=== PATIENT | male | born 1940 | race Caucasian/White ===

== ENCOUNTER 2024-06-25 23:38 | Inpatient (IN) | payer MEDICARE, BC, SELFPAY ==
[2024-06-25 20:30] VITALS: BP 150/87; BMI 30.6
[2024-06-25 20:44] LABS: % Basophils 0.3 % (0-2); % Eosinophils 0.3 % (0-6); % Immature Granulocytes 0.6 % (0-0.5); % Lymphocytes 9.3 % (20.5-51.1); % Monocytes 10.5 % (1.7-9.3); Absolute Basophils 0.1 10^3/uL (0-0.2); Absolute Eosinophils 0.1 10^3/uL (0-0.7); Absolute Immature Granulocytes 0.1 10^3/uL (0-0.05); Absolute Lymphocytes 1.9 10^3/uL (1.2-3.4); Absolute Monocytes 2.2 10^3/uL (0.1-0.6); Absolute Neutrophils 16.3 10^3/uL (1.4-6.5); Mean Corp Hgb Conc. 34.3 g/dL (33.0-37.0); Mean Corpuscular Hgb 28.6 pg (27.0-31.0); Mean Corpuscular Volume 83.3 fL (80.0-94.0); Mean Platelet Volume 9.5 fL (7.4-10.4); Nucleated Red Blood Cells % 0 % (-); Platelet Count 255 10^3/uL (130-400); White Blood Cell Count 20.6 10^3/uL (4.8-10.8)
[2024-06-25 21:03] LABS: ALT (SGPT) 14 U/L (0-50); AST (SGOT) 24 U/L (17-59); Albumin 4.1 g/dl (3.5-5.0); Alkaline Phosphatase 80 U/L (38-126); Blood Urea Nitrogen 27 mg/dl (9-20); Calcium 9.3 mg/dl (8.4-10.2); Carbon Dioxide 17 mmol/L (22-30); Chloride 102 mmol/L (98-107); Estimated Creatinine Clearance 67 ml/min; Glucose 136 mg/dl (70-99); Potassium 4.2 mmol/L (3.5-5.1); Sodium 137 mmol/L (135-145); Total Bilirubin 1.5 mg/dl (0.2-1.3); Total Protein 7.9 g/dl (6.3-8.2); eGFR > 60.00
[2024-06-25 21:43] LABS: Urine Albumin Trace (Neg - Trace); Urine Bilirubin Negative (Negative); Urine Character Slightly Cloudy (Clear); Urine Color Yellow; Urine Glucose Negative (Negative); Urine Ketone Negative (Negative); Urine Leukocyte 2+ (Negative); Urine Nitrite Positive (Negative); Urine Occult Blood 1+ (Negative); Urine Specific Gravity 1.015 (<1.030); Urine Urobilinogen Negative (Neg - 1+)
[2024-06-25 21:52] LABS: Urine Bacteria Many (Negative); Urine White Cell >100 /HPF (0-5)
--- NOTE | 2024-06-25 22:26 | ED.GENMED ---
History of Present Illness
General
Chief Complaint: Fever
Source: patient, records, spouse and family
Exam Limitations: none
Time Seen by Provider: 06/25/24 20:55
Nursing documentation reviewed up to this point in time: agreed with
History of Present Illness
History of Present Illness:
Patient is an 84-year-old male who presents to the emergency department secondary to a fever that began around 5 PM although the patient had felt warm earlier, fatigue, flushing as well as a temperature of 102.5 with 90% pulse ox. Patient started
with nasal congestion and a cough approximately 1 to 2 weeks ago. Patient denies any shortness of breath. Patient did complain of a sore throat that is resolved. Patient denies any GI symptoms. Patient does self cath. Patient denies shortness
of breath.
Past History
Past History
ED Past Medical History: CAD, Cancer (skin), HTN, Hypercholesterolemia, NIDDM and Other (Monoclonal gammopathy, Waldenstr�m's macroglobulinemia, BPH, anemia, osteoporosis, glaucoma)
ED Past Surgical History: Tonsilectomy and Other (Agree with documented past surgical history)
Social History
Tobacco: Former smoker
Alcohol: None
Drug: None
Personal:
Living: with family
Family History
Family History: Other
Review of Systems
Review of Systems
All Other Systems: ROS reviewed and negative except as documented in HPI and ROS
Constitutional: Reports fever, fatigue and chills
EENT: Reports runny nose
Respiratory: Reports cough; Denies trouble breathing
Cardiac: Reports no symptoms
ABD/GI: Reports no symptoms
: Reports difficulty voiding (Chronically self caths)
Musculoskeletal: Reports no symptoms
Skin: Reports no symptoms
Neurological: Reports no symptoms
Hematologic/Lymphatic: Reports no symptoms
Psychiatric: Reports no symptoms
Phy Exam
Physical Exam
Physical Exam:
Physical Exam
General: mild distress, alert and appropriate, well nourished, well hydrated
HENT: Normocephalic, supple with no lymphadenopathy, no thyromegaly
Eyes: Clear sclera, conjuctiva without injection
Heart: Regular rhythm and rate. No S3, S4. Grade 2/6 holosystolic murmur. No NVD
Lungs: No respiratory distress, no stridor, lung sounds clear and equal bilaterally, chest wall symmetrical and nontender
Abdomen: Soft, nontender, no organomegaly, no CVA tenderness, BS good
Neuro: Alert and oriented x 3, CN II - XII intact, no motor focality
Skin: no rash. Feels warm
Psychiatric: well kept. interactive and cooperative
Extremities: No edema, cyanosis, tenderness
Course
Orders/Labs/Results
Orders:
Orders
06/25/24 20:32
Electrocardiogram (*1) Urgent
Reason for Study: Other
Other Reason for Exam: Possible Sepsis
EKG- Treatment ONCE
IV Insert/Care/Rem.- Treatment PRN
Straight cath- Treatment ONCE
O2 Therapy [RESP] Urgent
Titrate/Wean O2 to maintain O2 sat greater than (%): 93
Special Instructions: TO MAINTAIN CONTINUOUS O2 SATS > OR = 93%
06/25/24 20:33
Complete Blood Count/With Diff Urgent
Comprehensive Metabolic Panel Urgent
Lactic Acid Q4H
Comment: ON ICE, CANCEL 2ND ORDER IF FIRST LACTIC ACID LEVEL <2
Urinalysis Reflex To Culture Urgent
Date Specimen was Collected: 06/25/24
Time Specimen was Collected: 20:32
Urine Microscopic Reflex Cult Urgent
Urine Culture Urgent
JORY Source: U
Specimen Description:
Date Specimen was Collected: 06/25/24
Time Specimen was Collected: 20:32
06/25/24 21:20
0.9% Sodium Chloride 1000 ml [Nss] 1,000 ml IV BOLUS
06/25/24 21:59
COVID-19 Antigen Urgent
Source: Nasal Swab
06/25/24 22:25
Cefepime HCl [Maxipime] 2,000 mg IV NOW STA
06/26/24 00:45
Lactic Acid Q4H
Comment: ON ICE, CANCEL 2ND ORDER IF FIRST LACTIC ACID LEVEL <2
Abnormal Lab Results
06/25/24
20:33
WBC 20.6 H 10^3/uL
(4.8-10.8)
RBC 4.20 L 10^6/uL
(4.70-6.10)
Hgb 12.0 L g/dL
(13.0-18.0)
Hct 35.0 L %
(39.0-52.0)
Abs Immat Gran (auto) 0.1 H 10^3/uL
(0-0.05)
Absolute Neuts (auto) 16.3 H 10^3/uL
(1.4-6.5)
Absolute Monos (auto) 2.2 H 10^3/uL
(0.1-0.6)
Immature Gran % 0.6 H %
(0-0.5)
Neutrophils % 79.0 H %
(42.2-75.2)
Lymphocytes % 9.3 L %
(20.5-51.1)
Monocytes % 10.5 H %
(1.7-9.3)
Carbon Dioxide 17 L mmol/L
(22-30)
BUN 27 H mg/dl
(9-20)
Glucose 136 H mg/dl
(70-99)
Total Bilirubin 1.5 H mg/dl
(0.2-1.3)
Ur Occult Blood Reflex 1+ A
(Negative)
Urine Nitrite (Reflex) Positive A
(Negative)
Leukocyte Esterase Rfl 2+ A
(Negative)
Urine WBC (Reflex) >100 A /HPF
(0-5)
Urine Bacteria (Reflex) Many A
(Negative)
06/25/24 20:33
06/25/24 20:33
Vital Signs
Initial and Last Documented VS:
Initial Vital Signs
Temp Pulse Resp BP Pulse Ox
99.9 F 110 20 150/87 91
06/25/24 20:30 06/25/24 20:30 06/25/24 20:30 06/25/24 20:30 06/25/24 20:30
Last Documented Vital Signs
Temp Pulse Resp BP Pulse Ox
99.9 F 100 25 150/87 93
06/25/24 20:30 06/25/24 22:02 06/25/24 22:02 06/25/24 20:30 06/25/24 22:02
*Radiology
Radiology exam reviewed: other (na)
*Pulse Oximetry
Patient hypoxic: no
*EKG
Interpreted by ED Provider?: Yes
EKG Intrepretation Date: 06/25/24
EKG Intrepretation Time: 22:31
Interpretation: abnormal
Comparison EKG: no changes
Heart Rate: 102
Rate: tachycardiac
Rhythm: sinus
Derry: left axis deviation
Interval: normal interval
QRS Pattern: poor R-wave progression
Ischemia: non-specific ST changes
*[employer] Supervisor Interpretation
Rate: tachycardiac
Interpretation: normal
Heart Rate: 102
Rhythm: sinus
*Critical Care Note
Total Time (30-74mins, 75-104mins- exclusive of procedures): Not Applicable
ED Attending Note
-
Portions of this chart may have been created with voice recognition software.� Occasional wrong word or��sound alike� substitutions may have occurred due to the inherent limitations of voice recognition software.
Discharge Plan
Departure
Patient Disposition: Home (Routine Discharge)
Date of Disposition: 06/25/24
Time of Disposition: 22:31
Patient with high blood pressure during this ER visit?: Yes
Condition: Serious
Covid-19: Not Applicable
Discharge Problem:
Acute UTI, Fever, Leukocytosis
Prescriptions:
No Action
losartan [Cozaar] 50 MG tablet
50 mg PO DAILY
pioglitazone 30 MG tablet
30 mg PO DAILY
doxycycline hyclate 100 MG capsule
100 mg PO Q3D
Patient Comments:
takes for rosacea
dorzolamide-timolol (PF) [Cosopt (PF)] 1 EACH dropperette
1 ea BOTH EYES BID
atorvastatin 20 mg Tablet
20 mg PO QPM
metformin 1,000 mg Tablet
1,000 mg PO BID
ferrous sulfate 325 mg (65 mg iron) Tablet,Delayed Release (Dr/Ec)
325 mg PO DAILY
Lumigan 0.01 % Drops
1 drp BOTH EYES QPM
mupirocin 2 % ointment
1 applic topical BID Qty: 1 0RF
aspirin 325 mg tablet
325 mg PO DAILY Qty: 1 0RF
Rx Instructions:
Take with food
docusate sodium [Colace] 100 mg capsule
100 mg PO BID Qty: 1 0RF
celecoxib 200 mg capsule
200 mg PO DAILY Qty: 14 0RF
Rx Instructions:
*take with food
*space out 2 hours from aspirin
sennosides [Senokot] 8.6 mg tablet
17.2 mg PO BID Qty: 2 0RF
tramadol 50 mg tablet
50 - 100 mg PO Q6H PRN (Reason: 1 tab moderate, 2 tabs if pain severe) Qty: 30 0RF
Rx Instructions:
Dx Orthopedic surgery
Ongoing therapy
post-op
famotidine 20 mg tablet
20 mg PO HS Qty: 30 0RF
Rx Instructions:
post-op
gabapentin 300 mg capsule
300 mg PO HS Qty: 10 0RF
acetaminophen 500 mg Tablet
500 - 1,000 mg PO QID Qty: 0 0RF
Referrals:
Clifford Lutz MD [Family Provider] -
Interventions
Interventions:
*Risk Screen - Suicide Last Done: 06/25/24 20:30
*General Assessment Last Done: 06/25/24 20:30
*Neglect/Abuse Screening Last Done: 06/25/24 20:30
ED- Fall Risk Assessment Last Done: 06/25/24 20:30
*ED COVID-19 Vaccine History Last Done: 06/25/24 20:30
ED- Neurological Assessment Last Done: 06/25/24 20:30
ED-Skin Assessment Last Done: 06/25/24 20:30
Discharge Date and Time
Print Language: MAURITIAN
[2024-06-25 22:29] LABS: COVID-19 Antigen Negative (Negative)
[2024-06-25] MEDS: MAXIPIME 2000 MG IV (22:39)
[2024-06-25] MEDS: NSS 1000 IV (22:39)
--- NOTE | 2024-06-25 22:53 | HPS.HSE ---
Family Physician
-
Family Physician: Clifford Lutz
Chief Complaint
-
fever
History of Present Illness
Mr. Chris Glaser is a 84 yo man with hx BPH (self catheterizes), CAD, HTN, HLD, NIDDM, Waldenstrom's macroglobulinemia, presents to the ER with fever and fatigue.
Patient states he has had fevers over past 2 days. Measured up to 102.5. ER note reports patient had congestion and cough 1-2 weeks ago, patient denies this to me. Poor historian. Denies chest pain. No nausea/vomiting/diarrhea. No abdominal
pain.
He currently denies pain.
Medical History
Past Medical History
Past Medical History: Reports Other (BPH (self catheterizes), CAD, HTN, HLD, NIDDM, Waldenstrom's macroglobulinemia)
Past Surgical History: Reports Tonsilectomy
Social History
Tobacco: Former Smoker
Alcohol: None
Family History
Family History: Not pertinent
Allergies / Home Medications
Allergies reflects when Allergies were last updated in [facility].
Home Medications with original date entered in [facility]
Allergy/Medication List:
Allergies
Allergy/AdvReac Type Severity Reaction Status Date / Time
oxycodone Allergy CONFUSION Verified 06/06/23 11:53
Home Medications
losartan 50 mg tablet (Cozaar) 50 mg PO DAILY Blood pressure 02/25/09
pioglitazone 30 mg tablet 30 mg PO DAILY Diabetes 12/01/19
dorzolamide-timolol (PF) 2 %-0.5 % eye drops in a dropperette (Cosopt (PF)) 1 ea BOTH EYES BID Eye condition 06/25/20
atorvastatin 20 mg tablet 20 mg PO QPM High cholesterol 08/27/22
bimatoprost 0.01 % eye drops (Lumigan) 1 drp BOTH EYES QPM Eye Condition 06/06/23
metformin 1,000 mg tablet 1,000 mg PO BID Diabetes 06/06/23
tamsulosin 0.4 mg capsule 0.4 mg PO DAILY 06/25/24
Review of Systems
-
History Source: Patient
A 12 point ROS was completed and negative except as noted: Yes
Physical Exam
Vital Signs
Vital Signs
Temp Pulse Resp BP Pulse Ox
99.9 F 100 25 150/87 93
06/25/24 20:30 06/25/24 22:02 06/25/24 22:02 06/25/24 20:30 06/25/24 22:02
Physical Exam
General: No Apparent Distress
HEENT: PERRLA
Respiratory: Clear; No Wheezes
Cardiac: S1/S2 and Regular Rhythm
GI: Soft and Non Tender
Musculoskeletal: No Edema
Skin: Warm and Dry; No Rash
Neuro: AO x 3
Psych: Calm
Laboratory Results
-
06/25/24 20:33
06/25/24 20:33
Laboratory Results
Lactic Acid 1.0 mmol/L (0.7-2.0) 06/25/24 20:33
Total Bilirubin 1.5 mg/dl (0.2-1.3) H 06/25/24 20:33
AST 24 U/L (17-59) 06/25/24 20:33
ALT 14 U/L (0-50) 06/25/24 20:33
Alkaline Phosphatase 80 U/L (38-126) 06/25/24 20:33
Data Reviewed
-
Diagnostic Radiology: Report Reviewed by me
Lab Data: Labs Reviewed by me
Impression/Plan
-
Mr. Chris Glaser is a 84 yo man with hx BPH (self catheterizes), CAD, HTN, HLD, NIDDM, Waldenstrom's macroglobulinemia, presents to the ER with fever and fatigue.
Triage VS: T 99.9, P 110, RR 20, BP 150/87, SpO2 91%
LABS: WBC 20.6, Hg 12, PLT 255, Na 137, K+ 4.2, CO2 17, Cr 1.0, Glucose 136, T. Bili 1.5, AST 24, ALT 14, Alk Phos 80
UA with WBC > 100
Covid negative
MAR: Cefepime, fluids
Sepsis 2/2 UTI
-will also obtain CXR given hypoxia and report of congestion
-s/p Cefepime in ER and 1L IVF
-lactate 1
-admit to telemetry
-IV Ceftriaxone
-IVF
-obtain blood culture (although Cefepime given first)
-F/U urine cultures
Patient placed on oxygen for SpO2 90%
-will obtain CXR
-incentive spirometer
NIDDM
-hold DOOR TO DOOR SALES REPRESENTATIVE Metformin and Actos for now
-ISS
-Diabetic Diet
Essential HTN
-DOOR TO DOOR SALES REPRESENTATIVE Losartan with hold parameters
HLD
-DOOR TO DOOR SALES REPRESENTATIVE Statin
Metabolic Acidosis, AG = 18
-lactate 1, glucose only 136
-related to metformin? - will hold
-monitor BMP
DVT PPx lovenox subQ
FULL CODE
--- NOTE | 2024-06-25 23:00 | TRANSFER ---
Pt received from ED to room 423. Pt assisted to stand and pivot to bed. AAOx3, VSS. Bed alarm for safety. Pt oriented to the room, call rogers within reach.
[2024-06-25 23:28] VITALS: BP 147/74
[2024-06-26] VITALS (7 sets, daily range): BP systolic 121–167; BP diastolic 66–96; PULSE 86; O2SAT 99; BMI 29.6
[2024-06-26] MEDS: NSS 1000 IV (01:04)
[2024-06-26 07:41] LABS: Hematocrit 34.1 % (39.0-52.0); Hemoglobin 11.3 g/dL (13.0-18.0); Mean Corp Hgb Conc. 33.1 g/dL (33.0-37.0); Mean Corpuscular Volume 87.7 fL (80.0-94.0); Mean Platelet Volume 9.8 fL (7.4-10.4); Platelet Count 224 10^3/uL (130-400); Red Blood Cell Count 3.89 10^6/uL (4.70-6.10); Red Cell Dist. Width 14.2 % (11.5-14.5); White Blood Cell Count 16.5 10^3/uL (4.8-10.8)
[2024-06-26 08:16] LABS: Blood Urea Nitrogen 22 mg/dl (9-20); Carbon Dioxide 20 mmol/L (22-30); Chloride 102 mmol/L (98-107); Estimated Creatinine Clearance 54 ml/min; Glucose 118 mg/dl (70-99); Magnesium 1.5 mg/dl (1.6-2.3); Potassium 3.7 mmol/L (3.5-5.1); Sodium 137 mmol/L (135-145); eGFR > 60.00
[2024-06-26 08:36] LABS: Glucose - Point of Care 125 mg/dl (70-99)
[2024-06-26] MEDS: STERILE WATER FOR INJECTION 10 ML IV (08:50)
[2024-06-26] MEDS: NOVOLOG FLEXPEN-LOW RESISTANCE SC ×2 (08:50→13:29)
[2024-06-26] MEDS: FLOMAX 0.4 MG PO (09:00)
[2024-06-26] MEDS: COZAAR 50 MG PO (09:00)
[2024-06-26] MEDS: ROCEPHIN 1000 MG IV (09:03)
[2024-06-26 09:34] LABS: Glycohemoglobin (HgbA1c) 6.4 % (4.0-5.6)
[2024-06-26 11:36] LABS: Glucose - Point of Care 126 mg/dl (70-99)
--- NOTE | 2024-06-26 14:57 | W.PN.HOSP.TC ---
Today's Communication/Plan
-
Continue antibiotics pending blood and urine cultures
Continue self-catheterization.
Physical therapy assessment
Assessment / Plan
Assessment / Plan
Impression:
Complicated urinary tract infection associated with catheter/self-catheterization
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
Toxic metabolic encephalopathy secondary to UTI.
Sepsis ruled out.
Transient hypoxia
Metabolic acidosis
Other conditions:
NIDDM.
Essential hypertension
Dyslipidemia
Plan:
Complicated UTI in the patient with chronic bladder outlet obstruction requiring self-catheterization.
Sepsis ruled out.
Urine and blood cultures pending.
TME with reported confusion upon admission currently improved with mental status back to baseline.
Initiated on antibiotics initial dose of cefepime in the ED transition to ceftriaxone.
Continue self-catheterization.
Continue Flomax
Metabolic acidosis
Hemodynamically stable.
Lactate level 1 upon admission.
Improving with IV fluid bolus.
Hold metformin acutely
Reported episode of hypoxia improved per
Chest x-ray with no infiltrate.
Continue incentive spirometry.
NIDDM.
Hemoglobin A1c 6.4.
Preadmission regimen pioglitazone
Continue basal bolus protocol with serial Accu-Cheks
Essential hypertension
Continue losartan with holding parameters.
Dyslipidemia continue statin
Anticipated Discharge: 24 - 48 hours
Subjective/Interval History
-
Date of Service: June 26, 2024
Objective Data
-
Labs:
Laboratory Results
06/26/24
07:00
WBC 16.5 H
Hgb 11.3 L
Hct 34.1 L
Plt Count 224
Sodium 137
Potassium 3.7
Chloride 102
Carbon Dioxide 20 L
BUN 22 H
Creatinine 1.1
Glucose 118 H
Calcium 9.0
Vital Signs:
Vital Signs
Temp Pulse Resp BP Pulse Ox
98.1 F 94 18 137/79 93
06/26/24 11:47 06/26/24 11:47 06/26/24 11:47 06/26/24 11:47 06/26/24 11:47
I&O
06/25/24 06/26/24 06/27/24
06:59 06:59 06:59
Intake Total 240 / 240
Output Total 1650 / 1650
Balance -1410 / -1410
Physical Exam
-
General: No Apparent Distress
HEENT: Normocephalic and Atraumatic
Respiratory: Clear to Auscultation; Negative Wheezes
Cardiac: Regular Rhythm and S1/S2
Breast: Deferred by me
GI: Soft, Nontender and Nondistended
Rectal: Deferred by Provider
Genito-urinary: Deferred by me
Musculoskeletal: No Clubbing, No Cyanosis and No Edema
Skin: Warm and Other (clean and dry dressing over L hip )
Neuro: Awake, Alert, Oriented, AO x 3 and Nonfocal/Grossly Intact
Psych: Calm
--- NOTE | 2024-06-26 15:03 | CM ---
Patient seen bedside, initial assessment completed. Patient resides with his in a single story home, one step to enter. Patient reports he has a walker and multiple canes at home, currently on O2, is not on home O2. Patient reports he is
current with [facility], denies SNF history. Patient confirms PCP Dr. Lutz, pharmacy [facility], confirms prescription coverage. CM will continue to follow for all discharge planning needs.
Plan; home with return of care [facility], watch for PT recommendations.
[2024-06-26] MEDS: XALATAN OPHTHALMIC SOLUTION 1 DROP BOTH EYES (18:53)
[2024-06-26 18:57] LABS: Glucose - Point of Care 198 mg/dl (70-99)
[2024-06-26] MEDS: LOVENOX 40 MG SC (18:57)
[2024-06-26] MEDS: LIPITOR 20 MG PO (18:57)
[2024-06-26] MEDS: NOVOLOG FLEXPEN-LOW RESISTANCE 1 UNITS SC (19:19)
[2024-06-26] MEDS: COSOPT EYE DROPS 1 DROP BOTH EYES (20:07)
[2024-06-26 21:37] LABS: Glucose - Point of Care 149 mg/dl (70-99)
[2024-06-27 04:00] VITALS: BP 131/73
[2024-06-27 06:05] LABS: % Basophils 0.4 % (0-2); % Eosinophils 2.5 % (0-6); % Immature Granulocytes 0.6 % (0-0.5); % Lymphocytes 12.8 % (20.5-51.1); % Monocytes 15.4 % (1.7-9.3); % Neutrophils 68.3 % (42.2-75.2); Absolute Basophils 0.1 10^3/uL (0-0.2); Absolute Eosinophils 0.3 10^3/uL (0-0.7); Absolute Immature Granulocytes 0.1 10^3/uL (0-0.05); Absolute Lymphocytes 1.5 10^3/uL (1.2-3.4); Absolute Monocytes 1.8 10^3/uL (0.1-0.6); Absolute Neutrophils 7.8 10^3/uL (1.4-6.5); Hematocrit 34.5 % (39.0-52.0); Hemoglobin 11.6 g/dL (13.0-18.0); Mean Corp Hgb Conc. 33.6 g/dL (33.0-37.0); Mean Corpuscular Hgb 29.1 pg (27.0-31.0); Mean Corpuscular Volume 86.5 fL (80.0-94.0); Mean Platelet Volume 9.8 fL (7.4-10.4); Nucleated Red Blood Cells % 0 % (-); Platelet Count 222 10^3/uL (130-400); Red Blood Cell Count 3.99 10^6/uL (4.70-6.10); Red Cell Dist. Width 13.8 % (11.5-14.5); White Blood Cell Count 11.4 10^3/uL (4.8-10.8)
[2024-06-27 06:28] LABS: Blood Urea Nitrogen 23 mg/dl (9-20); Calcium 9.3 mg/dl (8.4-10.2); Carbon Dioxide 23 mmol/L (22-30); Chloride 103 mmol/L (98-107); Estimated Creatinine Clearance 54 ml/min; Glucose 128 mg/dl (70-99); Potassium 4.1 mmol/L (3.5-5.1); Sodium 139 mmol/L (135-145); eGFR > 60.00
[2024-06-27 07:00] VITALS: BP 138/74
[2024-06-27 07:34] LABS: Glucose - Point of Care 138 mg/dl (70-99)
[2024-06-27] MEDS: NOVOLOG FLEXPEN-LOW RESISTANCE SC ×2 (08:13→17:01)
[2024-06-27] MEDS: ROCEPHIN 1000 MG IV (08:14)
[2024-06-27] MEDS: STERILE WATER FOR INJECTION 10 ML IV (08:14)
[2024-06-27] MEDS: ACTOS 30 MG PO (08:14)
[2024-06-27] MEDS: COZAAR 50 MG PO (08:14)
[2024-06-27] MEDS: FLOMAX 0.4 MG PO (08:14)
[2024-06-27] MEDS: COSOPT EYE DROPS 1 DROP BOTH EYES ×2 (08:15→20:12)
--- NOTE | 2024-06-27 09:26 | W.PN.HOSP.TC ---
Addendum entered and electronically signed by Fish Downs MD 06/27/24 09:43:
Physical Exam
-
General: Well Developed and No Apparent Distress. sitting in chair
HEENT: Normocephalic, Atraumatic and Moist Mucous Membranes
Respiratory: No wheezes
Cardiac: Regular Rhythm and S1/S2;
GI: Soft, Nontender, Nondistended and Normal Bowel Sounds;
Musculoskeletal: No Clubbing, No Cyanosis
Skin: Negative Rash
Neuro: Awake, Alert, Oriented, AO x to self and surroundings, followed commands.
Psych : calm
Original Note:
Today's Communication/Plan
-
Await urine culture
c/w Rocephin
Assessment / Plan
Assessment / Plan
Impression:
Complicated urinary tract infection associated with catheter/self-catheterization
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
Toxic metabolic encephalopathy secondary to UTI.
Sepsis ruled out.
Transient hypoxia
Metabolic acidosis
Other conditions:
NIDDM.
Essential hypertension
Dyslipidemia
Plan:
Complicated UTI in the patient with chronic bladder outlet obstruction requiring self-catheterization.
Sepsis ruled out.
Urine and blood cultures pending.
TME with reported confusion upon admission currently improved with mental status back to baseline.
Initiated on antibiotics initial dose of cefepime in the ED transition to ceftriaxone.
Continue self-catheterization.
Continue Flomax
Await urine culture
Blood culture no growth
Metabolic acidosis
Hemodynamically stable.
Lactate level 1 upon admission.
Improving with IV fluid bolus.
Hold metformin acutely
hypomagnesemia
replace
Reported episode of hypoxia improved per
Chest x-ray with no infiltrate.
Continue incentive spirometry.
NIDDM.
Hemoglobin A1c 6.4.
Preadmission regimen pioglitazone
Continue basal bolus protocol with serial Accu-Cheks
Essential hypertension
Continue losartan with holding parameters.
Dyslipidemia continue statin
Total time spent to see the patient, examine the patient on the floor, review data and lab results, discuss treatment plan with patient, nursing staff around 55 minutes
Anticipated Discharge: Within 24 hours
Subjective/Interval History
-
Date of Service: June 27, 2024
No abd or flank pain
No dysuria
No fever or chills
No chest pain
Objective Data
-
Labs:
Laboratory Results
06/27/24
05:42
WBC 11.4 H
Hgb 11.6 L
Hct 34.5 L
Plt Count 222
Sodium 139
Potassium 4.1
Chloride 103
Carbon Dioxide 23
BUN 23 H
Creatinine 1.1
Glucose 128 H
Calcium 9.3
Vital Signs:
Vital Signs
Temp Pulse Resp BP Pulse Ox
98.9 F 79 20 138/74 90
06/27/24 07:00 06/27/24 08:14 06/27/24 07:00 06/27/24 08:14 06/27/24 07:00
I&O
06/26/24 06/27/24 06/28/24
06:59 06:59 06:59
Intake Total 240 / 240 780 / 780
Output Total 1650 / 1650 2024 500 / 500
Balance -1410 / -1410 -1245 / -1245 -500 / -500
[2024-06-27 11:00] VITALS: BP 129/71
[2024-06-27 12:00] LABS: Glucose - Point of Care 159 mg/dl (70-99)
[2024-06-27] MEDS: NOVOLOG FLEXPEN-LOW RESISTANCE 1 UNITS SC (12:35)
[2024-06-27 15:00] VITALS: BP 131/74
[2024-06-27 16:47] LABS: Glucose - Point of Care 138 mg/dl (70-99)
[2024-06-27] MEDS: LOVENOX 40 MG SC (17:33)
[2024-06-27] MEDS: LIPITOR 20 MG PO (17:33)
[2024-06-27] MEDS: XALATAN OPHTHALMIC SOLUTION 1 DROP BOTH EYES (18:07)
[2024-06-27 19:40] VITALS: BP 132/71
[2024-06-27 21:42] LABS: Glucose - Point of Care 154 mg/dl (70-99)
[2024-06-27 23:32] VITALS: BP 138/73
[2024-06-28 03:28] VITALS: BP 150/80
[2024-06-28 07:02] LABS: Glucose - Point of Care 122 mg/dl (70-99)
[2024-06-28 07:20] VITALS: BP 135/94
[2024-06-28] MEDS: NOVOLOG FLEXPEN-LOW RESISTANCE SC ×2 (07:59→12:00)
[2024-06-28] MEDS: FLOMAX 0.4 MG PO (08:00)
[2024-06-28] MEDS: ACTOS 30 MG PO (08:00)
[2024-06-28] MEDS: COZAAR 50 MG PO (08:00)
[2024-06-28] MEDS: STERILE WATER FOR INJECTION 10 ML IV (08:01)
[2024-06-28] MEDS: ROCEPHIN 1000 MG IV (08:01)
[2024-06-28] MEDS: DESENEX/MITRAZOL/ZEASORB 1 APPLIC TOPICAL (08:02)
[2024-06-28] MEDS: COSOPT EYE DROPS 1 DROP BOTH EYES (08:02)
--- NOTE | 2024-06-28 09:06 | W.PN.HOSP.TC ---
Today's Communication/Plan
-
dc later today
Assessment / Plan
Assessment / Plan
Impression:
Complicated urinary tract infection associated with catheter/self-catheterization
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
Toxic metabolic encephalopathy secondary to UTI.
Sepsis ruled out.
Transient hypoxia
Metabolic acidosis
Other conditions:
NIDDM.
Essential hypertension
Dyslipidemia
Plan:
Complicated UTI in the patient with chronic bladder outlet obstruction requiring self-catheterization.
Sepsis ruled out.
Urine culture is gram negative bacilli
Negative blood culture.
TME with reported confusion upon admission currently improved with mental status back to baseline.
Initiated on antibiotics initial dose of cefepime in the ED transition to ceftriaxone. Pt is anxious to go home, he feels normal for 48 hours now, he understands that result of culture is not complete and he will be called if changes need to happen.
Continue self-catheterization.
Continue Flomax
Metabolic acidosis
Hemodynamically stable.
Lactate level 1 upon admission.
Improved with IV fluid bolus.
Ok to resume metformin upon dc
hypomagnesemia
replaced
Reported episode of hypoxia improved per
Chest x-ray with no infiltrate.
Continue incentive spirometry.
NIDDM.
Hemoglobin A1c 6.4.
Preadmission regimen pioglitazone
Continue basal bolus protocol with serial Accu-Cheks
Essential hypertension
Continue losartan with holding parameters.
Dyslipidemia continue statin
Total discharge time spent to see the patient, examine the patient on the floor, review data and lab results, discuss discharge plan with patient, nursing staff around 65 minutes
Anticipated Discharge: Today
Subjective/Interval History
-
Date of Service: June 28, 2024
Feels well
anxious to go home
Objective Data
-
Vital Signs:
Vital Signs
Temp Pulse Resp BP Pulse Ox
98.2 F 69 18 135/94 94
06/28/24 07:20 06/28/24 07:20 06/28/24 07:20 06/28/24 07:20 06/28/24 07:20
I&O
06/27/24 06/28/24 06/29/24
06:59 06:59 06:59
Intake Total 780 / 780 1020 / 1020
Output Total 2024 2775 / 2775
Balance -1245 / -1245 -1755 / -1755
[2024-06-28 11:20] VITALS: BP 137/73
--- NOTE | 2024-06-28 11:27 | W.DCSUMMARY ---
Discharge Summary
Discharge Data
Date of Admission: 06/25/24
Date of Discharge: 06/28/24
-
Pending Results: No
Hospital Course
84 years old male presented with fever and fatigue. Patient reported he had fever for 2 days. He also reported nasal congestion with cough for a week duration. Patient had history of BPH and was using self-catheterization at home. Urine test
came consistent with infection. Urine culture showed pansensitive Klebsiella pneumonia. Patient was treated for urinary tract infection. He did not have cough, hypoxia. Chest radiography did not show infiltrate. Patient improved significantly
and felt back to normal. Blood culture did not show any growth. He remained hemodynamically stable and was discharged home in a stable condition to finish 10 days course of antibiotic.
Discharge Plan
-
Patient Disposition: Home (Routine Discharge)
Discharge Diagnosis/Procedures: Klebsiella pneumoniae urinary tract infection
Diet: As tolerated
Referrals:
Clifford Lutz MD [Family Provider] - in one to two weeks
Prescriptions:
New
cephalexin 500 mg capsule
500 mg PO QID Qty: 28 0RF
Continued
losartan [Cozaar] 50 MG tablet
50 mg PO DAILY
pioglitazone 30 MG tablet
30 mg PO DAILY
dorzolamide-timolol (PF) [Cosopt (PF)] 1 EACH dropperette
1 ea BOTH EYES BID
atorvastatin 20 mg Tablet
20 mg PO QPM
metformin 1,000 mg Tablet
1,000 mg PO BID
Lumigan 0.01 % Drops
1 drp BOTH EYES QPM
tamsulosin 0.4 mg Capsule
0.4 mg PO DAILY
Discharge Orders:
Discharge Patient (As Directed); Ordered 06/28/24
Ordered By: Fish Downs
Discharge Date and Time
Print Language: IRISH
[2024-06-28 11:51] LABS: Glucose - Point of Care 122 mg/dl (70-99)
--- NOTE | 2024-06-28 11:59 | CM ---
Addendum entered by Dara Lan 06/28/24 12:13:
[facility]
Original Note:
Patient seen bedside, discussed plan for discharge today. CM reviewed PT recommendations of home PT, patient confirms he is current with [facility], referral placed in [facility], call placed to [facility] [phone], left voicemail to confirm patient is
current and will accept return of care patient. IMM reviewed with patient, signed, placed in chart. Patient reports his will be here around 2:00 p.m. to provide transportation home. CM will continue to follow for all discharge planning needs.
Plan; home with [facility].
[2024-06-28 15:39] VITALS: BP 110/63
== END 2024-06-28 15:50 | disposition home health service (06) | DRG 698 ==
LOC: 4 WEST ACU 23:38
PROVIDERS: Internal Medicine; ADMITTING PHYSICIAN Student in an Organized Health Care Education/Training Program; ATTENDING PHYSICIAN Internal Medicine; EMERGENCY PHYSICIAN Emergency Medicine; FAMILY PHYSICIAN Internal Medicine Geriatric Medicine
DX: T83.511A Infection and inflammatory reaction due to indwelling urethral catheter, initial encounter (principal); G92.8 Other toxic encephalopathy; J15.0 Pneumonia due to Klebsiella pneumoniae; E87.20 Acidosis, unspecified; Z87.891 Personal history of nicotine dependence; N39.0 Urinary tract infection, site not specified; Y73.1 Therapeutic (nonsurgical) and rehabilitative gastroenterology and urology devices associated with adverse incidents; E11.9 Type 2 diabetes mellitus without complications; I10 Essential (primary) hypertension
CPT/HCPCS: 51701; 71046; 80048; 80053; 81003; 81015; 82962; 83036; 83605; 83735; 85025; 85027; 87040; 87077; 87086; 87186; 87811; 93005; 96361; 96374; 97162; 97530; 99285